=== PATIENT | male | born 1955 | race Caucasian/White ===

== ENCOUNTER 2018-11-22 05:26 | Day surgery (SDC) | payer BC ==
[2018-11-06 15:47] VITALS: BMI 26.6
[2018-11-22] MEDS ORDERED: DEXAMETHASONE SOD PHOSPHATE/PF 10 MG/ML SDV ONE (08:48)
[2018-11-22] MEDS ORDERED: ROPIVACAINE HCL 0.5% 30ML VIAL ONE (08:48)
[2018-11-22] MEDS ORDERED: MIDAZOLAM HCL 2 MG/2 ML SINGLE DOSE VIAL ONE ×2 (08:50)
--- NOTE | 2018-11-22 09:09 | HP ---
[facility] - Chief Complaint Chief Complaint: left shoulder pain - Past Medical History Allergies/Adverse Reactions: Allergies Allergy/AdvReac Type Severity Reaction Status Date / Time No Known Allergies Allergy Verified 02/27/13 18:12 - Current Medications Current Medications: Home Medications Medication Instructions Recorded Clonazepam 0.5 mg PO PRN 03/20/13 Fluoxetine HCl [Prozac -] 20 mg PO DAILY 03/20/13 Aspirin [ASA -] 81 mg PO PRN 11/06/18 Lamotrigine [Lamictal] 200 mg PO DAILY 11/06/18 Oxycodone HCl/Acetaminophen 1 - 2 tab PO Q6H #30 tab MDD 6 11/22/18 [Percocet 5-325 mg Tablet] Satellite Physical Exam - Physical Examination General Appearance: Well Nourished, Well Developed, Alert & Oriented x3 ENT: Clear Lung: Normal air movement Heart: Regular rate & rhythm Extremities: Other (left shoulder- + ttp, decr rom, + neer, + hernandez, +obriens , nvi MRI + impingement, labral tear) Neurological: Intact, Alert, Oriented Satellite Impression/Plan - Impression/Plan Impression: left shoulder internal derangement Operative Procedure: left shoulder arthroscopy with SAD and possible labral repair Date to be Performed: 11/22/18
[2018-11-22] MEDS ORDERED: PROPOFOL 20 ML ONE (12:03)
[2018-11-22] MEDS ORDERED: LIDOCAINE HCL/PF 2% SDV 5ML VIAL ONE (12:04)
[2018-11-22] MEDS ORDERED: ceFAZolin SODIUM 1 GM VIAL ONE (12:23)
[2018-11-22] MEDS ORDERED: ceFAZolin SODIUM 1 GM VIAL IVPB ONE (12:25)
--- NOTE | 2018-11-22 13:39 | OP ---
Operative Note - Note: Operative Date: 11/22/18 Pre-Operative Diagnosis: left shoulder impingement, syndrome, AC joint OA, instability, labral tear Operation: left shoulder arthroscopy, subacromial decompression, distal clavicle excision, AC joint resection, labral repair Implants: Arthrex Push locl anchor x 1 Surgeon: Reinier Shankar Health Equipment Servicer: Skyler Pinto Anesthesiologist/TABLET MAKING MACHINE OPERATOR HELPER: Astrid Eng Anesthesia: General, Local Specimens Removed: shavings Estimated Blood Loss (mls): 50 Drains, Volume Out (mls): 0 Blood Volume Replaced (mls): 0 Fluid Volume Replaced (mls): 1,000 Operative Report Dictated: Yes
[2018-11-22] MEDS ORDERED: ONDANSETRON 4 MG/2 ML VIAL IVPUSH PRN (14:35)
[2018-11-22] MEDS ORDERED: oxyCODONE HCL 5 MG TABLET PO PRN (14:35)
[2018-11-22] MEDS ORDERED: LACTATED RINGERS SOLUTION 1,000 ML IV SCH (14:45)
--- NOTE | 2018-11-22 15:50 | OP ---
DATE OF OPERATION: 11/22/2018 PREOPERATIVE DIAGNOSIS: Left shoulder impingement syndrome, acromioclavicular joint arthritis, labral tear. POSTOPERATIVE DIAGNOSIS: Left shoulder impingement syndrome, acromioclavicular joint arthritis, labral tear. PROCEDURE: Left shoulder arthroscopy, subacromial decompression, distal clavicle excision, acromioclavicular joint resection, and arthroscopic labral repair. SURGEON: Quoc Kapoor MD SECOND PROSTHETIC MAKEUP DESIGNER: LENNY Machuca ANESTHESIOLOGIST: Astrid Eng CRNA ANESTHESIA: Left interscalene block with LMA anesthesia. DRAINS: None. COMPLICATIONS: None. BLOOD LOSS: Minimal. BLOOD GIVEN: None. FLUID REPLACEMENT: 100 mL PlasmaLyte. INDICATION: This patient is a 63-year-old male with preoperative diagnosis of multiple shoulder dislocations, pain, AC joint arthritis, and labral tear. After understanding the potential risk, complications, alternatives, and benefits of surgical versus nonsurgical treatment. The patient elected to undergo this procedure. He understands that it is possible he will need additional surgery and he may continue to have instability. DESCRIPTION OF PROCEDURE: The patient was brought into the operating room, peripheral IV placed and IV sedation given. Ancef 2 g were given. Left interscalene block was performed, and LMA anesthesia was induced. He was placed into the beach chair position with ample padding throughout. The left upper extremity was prepped and draped in a sterile fashion. The bony landmarks were marked out with a marking pen. A posterior portal established. A diagnostic glenohumeral arthroscopy was performed. In the glenohumeral joint the patient had osteoarthritis of the glenoid and some degenerative cartilage. The patient had a huge Hill-Sachs lesion in the humeral head. The undersurface of the rotator cuff was mildly frayed, and the patient did have a labral tear from the 9 o'clock to the 12 o'clock position. From 6 o'clock to 9 o'clock, the patient's labrum was small, truncated. There was nothing to repair. There was no tear, but a portion of it was gone. Next in the standard fashion, I did an arthroscopic labral repair using 1 Arthrex PushLock anchor. Photographs were taken. It came down quite nicely. The frayed edges of the rest of the labrum was debrided with a shaver, and overall then it was quite good. Next our attention turned to the subacromial space. Patient had a tremendous amount of inflammatory bursitis. A lateral portal was established under direct visualization. The bursitis was removed with the Arthrocare Wand. After this extensive debridement, a huge subacromial bony spur was revealed, and a very large subclavicular spur was revealed. These were taken down with a 5.5-mm oval annette, fine tuned in reverse, as well as with the shaver, and all soft tissue debris and bony debris were removed with the shaver. I was able to then directly visualize the AC joint from below, and it was quite thin with bone rubbing on bone with the arm in abduction. Therefore, one of the anterior portals was used, using first the Arthrocare Wand and then the shaver then the annette then the shaver again, to do an AC joint resection. It looked much better with 5.5-mm of space. The area was copiously irrigated and washed out. All excess saline and debris removed. The arthroscopy portal was closed with 3-0 nylon suture. The area was then washed and dried and covered with Aquacel dressing. The patient's arm was put into a shoulder immobilizer, extubated, brought down out of the beach chair position. Total operative time was about 60 minutes. He was brought to the ambulatory recovery room in stable condition. QUOC KAPOOR M.D. [id number]
[2018-11-22 16:08] VITALS: BP 130/69; PULSE 75; TEMP 97.6
--- NOTE | 2018-11-24 13:58 | PATH ---
Surgical Pathology Report Patient Name: TOBY PALMER [facility]. Rec. #: [id number] /Age/Gender: 1955 (Age: 63) / M Account: [id number] Location: [facility] SURGICAL Taken: 11/22/2018 Received: 11/23/2018 Reported: 11/24/2018 Physicians: Reinier Shankar M.D. Specimen(s) Received LEFT SHOULDER SHAVINGS Clinical History Tear left shoulder Final Diagnosis SHOULDER SHAVINGS, LEFT, ARTHROSCOPY: FRAGMENTS OF BENIGN CARTILAGE, DENSE FIBROCONNECTIVE TISSUE, ADIPOSE TISSUE, BONE, AND, SKELETAL MUSCLE. Electronically Signed Lulú Varma M.D. Gross Description Received in formalin labeled "left shoulder shavings," is a 1.5 x 1.1 x 0.2 cm aggregate of reynoso-yellow soft tissue fragments. The formalin is filtered and the specimen is entirely submitted in one cassette. /11/23/201811/23/2018
== END 2018-11-22 16:05 | disposition home or self-care (01) ==
LOC: JASU-SURG 05:26
PROVIDERS: ATTEND Orthopaedic Surgery
PROC: 0PBB4ZZ Excision of Left Clavicle, Percutaneous Endoscopic Approach (ICD-10-PCS; 2018-11-22)
PROC: 0RQK4ZZ Repair Left Shoulder Joint, Percutaneous Endoscopic Approach (ICD-10-PCS; 2018-11-22)
PROC: 0RNK4ZZ Release Left Shoulder Joint, Percutaneous Endoscopic Approach (ICD-10-PCS; principal; 2018-11-22 11:00)
DX: M75.42 Impingement syndrome of left shoulder (principal); M19.012 Primary osteoarthritis, left shoulder; S43.492A Other sprain of left shoulder joint, initial encounter; X58.XXXA Exposure to other specified factors, initial encounter; Y93.9 Activity, unspecified; Y92.9 Unspecified place or not applicable
CPT/HCPCS: 88304-TC; 94760